=== PATIENT | female | born 1965 | race Caucasian/White ===

== ENCOUNTER 2017-08-19 12:04 | Emergency (ER) | payer OTHER ==
[~2017-08-19] VITALS: Ht 162.6 cm; Wt 60.3 kg
[~2017-08-19 12:04] MED LIST: ATARAX,VISTARIL25 MG PO; NAPROXEN500 MG PO; PREDNISONE10 MG PO; TOPICORT60 G1 TP; [UNRECOGNIZED DRUG - OTHER] TP
[2017-08-19] MEDS ORDERED: IMITREX25 MG PO (13:49)
[2017-08-19] MEDS ORDERED: REGLAN10 MG PO (13:49)
[2017-08-19 14:17] VITALS: BP 157/93
== END 2017-08-19 14:00 | disposition home or self-care (01) ==
LOC: EME 12:04
DX: G43.909 Migraine, unspecified, not intractable, without status migrainosus (principal); F17.200 Nicotine dependence, unspecified, uncomplicated; Z88.5 Allergy status to narcotic agent
CPT/HCPCS: 99281; 99285; J2765; J3030; J7050

== ENCOUNTER 2018-02-14 16:52 | Emergency (ER) | payer OTHER ==
[~2018-02-14] VITALS: Ht 160 cm; Wt 59.2 kg
[~2018-02-14 16:52] MED LIST changes: +IMITREX25 MG PO; +REGLAN10 MG PO
[2018-02-14 19:01] LABS: HEMOGLOBIN 10.3 G/DL (11.9-15.5); MCH 34.4 PG (29.0-34.0); MCHC 35.5 G/DL (30.0-36.0); PLATELET COUNT 199 K/uL (156-360); RBC DIS.WIDTH-CV 11.9 % (11.8-14.6); RBC DIS.WIDTH-SD 41.6 % (39-53); RED BLOOD COUNT 2.99 M/uL (3.80-5.20); WHITE BLOOD COUNT 6.7 K/uL (4.1-10.2)
[2018-02-14 19:09] LABS: ALBUMIN 3.9 g/dL (3.2-4.8); CHLORIDE 99 mEq/L (99-109); POTASSIUM 4.1 mEq/L (3.7-5.4); SODIUM 135 mEq/L (136-147)
[2018-02-14 19:11] LABS: GLUCOSE 77 mg/dL (70-99)
[2018-02-14 19:12] LABS: TOTAL PROTEIN 6.4 g/dL (6.4-8.3)
[2018-02-14 19:13] LABS: TOTAL BILIRUBIN 0.4 mg/dL (0.0-1.0)
[2018-02-14 19:15] LABS: ALKALINE PHOSPHATASE 72 IU/L (3-129); GFR ESTIMATE (CALCULATED) > 59 mL/min/
[2018-02-14 19:16] LABS: UREA NITROGEN (BUN) 27 mg/dL (9-23)
[2018-02-14 19:17] LABS: AST (GOT) 36 IU/L (2-34)
[2018-02-14 19:18] LABS: ALT (GPT) 37 IU/L (3-49)
[2018-02-14 19:24] LABS: QUANTITATIVE HCG < 4.0 MIU/ML
[2018-02-14 19:25] LABS: APPEARANCE CLEAR ((CLEAR)); BILIRUBIN NEGATIVE; BLOOD NEGATIVE; COLOR YELLOW ((YELLOW)); GLUCOSE (STRIP) NEGATIVE; KETONES 5; LEUKOCYTES NEGATIVE; NITRITE NEGATIVE; PROTEIN (STRIP) NEGATIVE; SPECIFIC GRAVITY 1.014 (1.000-1.030); UCUL ADDED? NO; UROBILINOGEN 0.2 MG/DL (0.2-1.0)
[2018-02-14 19:28] LABS: CREATININE 0.9 mg/dL (0.6-1.3)
[2018-02-14 20:05] VITALS: BP 124/88
== END 2018-02-14 20:06 | disposition home or self-care (01) ==
LOC: RME 16:52 → EME 16:52 → RME 20:06
PROVIDERS: Physician Assistant
DX: N14.1 Nephropathy induced by other drugs, medicaments and biological substances (principal); T50.2X5A Adverse effect of carbonic-anhydrase inhibitors, benzothiadiazides and other diuretics, initial encounter; D64.9 Anemia, unspecified; I10 Essential (primary) hypertension; T46.5X6A Underdosing of other antihypertensive drugs, initial encounter; Z91.14 Patient's other noncompliance with medication regimen; F17.210 Nicotine dependence, cigarettes, uncomplicated; Z88.5 Allergy status to narcotic agent
CPT/HCPCS: 80053; 81003; 84702; 85027; 99281; 99284